=== PATIENT | female | born 1985 | race American Indian/Alaskan Native ===

== ENCOUNTER 2017-09-13 11:48 | Emergency (ER) | payer SELFPAY ==
--- NOTE | 2017-09-13 12:41 | Emergency Department Report ---
Blank Doc - Documentation Documentation: 32-year-old female with a past medical history irregular menses since onset of her dementia cycle presents to the hospital complaining of vaginal bleeding 3 weeks. Patient's last menstral cycle was December 2017 but she has been bleeding continuously since 08/27/2017. Initially started out with spotting now patient has used a 48 pack overnight pads in a one-week period. She complains of intermittent crampy abdominal pain that worsens with heavy bleeding. She c/o of feeling lightheaded, tired, and dizzy. Denies SOB. She has never had an ultrasound or been . Denies urinary symptoms labs ordered including preg US transvag/pelvic midlevel to evaluate
[2017-09-13 13:44] LABS: BUN/Creatinine Ratio 16; Blood Urea Nitrogen 11 mg/dL (7-17); Calcium 9.1 mg/dL (8.4-10.2); Hemolysis Index 2
[2017-09-13 13:48] LABS: Basophils % (Auto) 0.5 % (0.0-1.8); Eosinophils # (Auto) 0.2 K/mm3 (0.0-0.4); Eosinophils % (Auto) 2.6 % (0.0-4.3); Hematocrit 32.8 % (30.3-42.9); Hemoglobin 10.4 gm/dl (10.1-14.3); Lymphocytes # (Auto) 3.1 K/mm3 (1.2-5.4); Lymphocytes % (Auto) 31.9 % (13.4-35.0); Mean Corpuscular HGB Conc 32 % (30-34); Mean Corpuscular Volume 78 fl (79-97); Monocytes # (Auto) 0.5 K/mm3 (0.0-0.8); Monocytes % (Auto) 4.7 % (0.0-7.3); Platelet Count 357 K/mm3 (140-440); Red Blood Count 4.21 M/mm3 (3.65-5.03); Red Cell Distribution Width 17.5 % (13.2-15.2)
[2017-09-13 13:54] LABS: Free T4 (Free Thyroxine) 0.98 ng/dL (0.76-1.46)
[2017-09-13 13:56] LABS: Mean Corpuscular Hemoglobin 25 pg (28-32)
--- NOTE | 2017-09-13 15:13 | Ultrasound Report ---
Pelvic and transvaginal sonography: History: Heavy irregular menses. Findings: Uterus measures 9.3 x 4.6 x 4.8 cm. Endometrial thickness 13.3 mm. The endometrial margin appears irregular and the endometrium appears heterogeneous. No distinct mass is seen. Right ovary 2.8 x 1.7 x 2.3 cm. No mass. Left ovary 3.8 x 2.8 x 2.7 cm but no masses. Impression: Findings as detailed above.
--- NOTE | 2017-09-13 15:52 | Emergency Department Report ---
ED Female HPI - General Chief complaint: Vaginal Bleeding Stated complaint: PROLONGED/IRREGULAR MENSTRAL Time Seen by Provider: 09/13/17 12:33 Source: patient Mode of arrival: Ambulatory Limitations: No Limitations - History of Present Illness Initial comments: This is a 32-year-old female nontoxic, well nourished in appearance, no acute signs of distress presents to the ED with c/o of acute on chronic abnormal menstrual cycle 2 weeks. Patient stated that her last menstrual cycle was on December 2017 and has been bleeding consistently since 08/27/2017. Patient denies any urinary symptoms. She denies any fever, chills, nausea, vomiting, headache, stiff neck, numbness or tingling. Patient states that she gets intermittently abdominal cramping that is worsened during heavy menstrual cycle. Patient denies any chest pain or shortness of breath. Patient denies having any ultrasound follow-up. Patient denies any allergies or PMH. MD Complaint: vaginal bleeding -: week(s) (2) Radiation: non-radiating Severity: mild Severity scale (0 -10): 3 Quality: cramping Consistency: intermittent Improves with: none Worsens with: none Are you Now?: No Associated Symptoms: vaginal bleeding. denies: vaginal discharge, abdominal pain, nausea/vomiting, fever/chills, headaches, loss of appetite, dysuria, hematuria, rash, seizure, shortness of breath, syncope, weakness - Related Data Sexually active: No Previous Rx's Medication Instructions Recorded Last Taken Type Ibuprofen [Motrin] 600 mg PO Q8H PRN #30 tablet 09/13/17 Unknown Rx Allergies Allergy/AdvReac Type Severity Reaction Status Date / Time aloe vera Allergy Hives Verified 09/20/14 13:49 [place] Allergy Swelling Uncoded 09/20/14 13:49 ED Review of Systems ROS: Stated complaint: PROLONGED/IRREGULAR MENSTRAL Other details as noted in HPI Constitutional: denies: chills, fever Eyes: denies: eye pain, eye discharge, vision change ENT: denies: ear pain, throat pain Respiratory: denies: cough, shortness of breath, wheezing Cardiovascular: denies: chest pain, palpitations Endocrine: no symptoms reported Gastrointestinal: denies: abdominal pain, nausea, diarrhea Genitourinary: abnormal menses. denies: urgency, dysuria, discharge Musculoskeletal: denies: back pain, joint swelling, arthralgia Skin: denies: rash, lesions Neurological: denies: headache, weakness, paresthesias Psychiatric: denies: anxiety, depression Hematological/Lymphatic: denies: easy bleeding, easy bruising ED Past Medical Hx - Past Medical History Previous Medical History?: No - Surgical History Additional Surgical History: Tonsilectomy - Social History Smoking Status: Never Smoker Substance Use Type: None - Medications Home Medications: Home Medications Medication Instructions Recorded Confirmed Last Taken Type Ibuprofen [Motrin] 600 mg PO Q8H PRN #30 tablet 09/13/17 Unknown Rx ED Physical Exam - General Limitations: No Limitations General appearance: alert, in no apparent distress - Head Head exam: Present: atraumatic, normocephalic - Eye Eye exam: Present: normal appearance Pupils: Present: normal accommodation - ENT ENT exam: Present: normal exam, mucous membranes moist - Neck Neck exam: Present: normal inspection, full ROM. Absent: tenderness, meningismus, lymphadenopathy - Respiratory Respiratory exam: Present: normal lung sounds bilaterally. Absent: respiratory distress, wheezes, rales, rhonchi, stridor, chest wall tenderness, accessory muscle use, decreased breath sounds, prolonged expiratory - Cardiovascular Cardiovascular Exam: Present: regular rate, normal rhythm, normal heart sounds. Absent: bradycardia, tachycardia, irregular rhythm, systolic murmur, diastolic murmur, rubs, gallop - GI/Abdominal GI/Abdominal exam: Present: soft, normal bowel sounds. Absent: distended, tenderness, guarding, rebound, rigid, diminished bowel sounds - Rectal Rectal exam: Present: deferred - Extremities Exam Extremities exam: Present: normal inspection, full ROM, normal capillary refill. Absent: tenderness - Back Exam Back exam: Present: normal inspection, full ROM. Absent: tenderness, CVA tenderness (R), CVA tenderness (L), muscle spasm, paraspinal tenderness, vertebral tenderness, rash noted - Neurological Exam Neurological exam: Present: alert, oriented X3, normal gait - Psychiatric Psychiatric exam: Present: normal affect, normal mood - Skin Skin exam: Present: warm, dry, intact, normal color. Absent: rash ED Course Vital Signs 09/13/17 11:56 Temperature 98.9 F Pulse Rate 66 Respiratory 16 Rate Blood Pressure 140/88 O2 Sat by Pulse 98 Oximetry - Reevaluation(s) Reevaluation #1: 09/13/17 15:54 Patient is speaking in full sentences with no signs of distress noted. - Consultations Consultation #1: 09/13/17 15:54 Patient has been consulted with Dr. Braswell about patient history, physical exam, and labs/US report and examined and screened patient and agrees to ED plan of care and discharge plan of care. ED Medical Decision Making - Lab Data Result diagrams: 09/13/17 13:10 09/13/17 13:10 - Medical Decision Making This is a 32-year-old female who presents with a abnormal menaces. Patient is stable exam by me and Dr. Sauceda. Labs obtained and unremarkable. Ultrasound dictated by radiologist within normal limits. Patient notified of the ultrasound report with no questions by the patient. There is no abdominal pain or tenderness. No pelvic pain or tenderness. Patient was instructed to Follow- up with a primary care doctor in 3-5 days or if symptoms worsen and continue return to emergency room as soon as possible. At time of discharge, the patient does not seem toxic or ill in appearance. No acute signs of distress noted. Patient agrees to discharge treatment plan of care. No further questions noted by the patient. Critical care attestation.: If time is entered above; I have spent that time in minutes in the direct care of this critically ill patient, excluding procedure time. ED Disposition Clinical Impression: Abnormal menses Disposition: DC-01 TO HOME OR SELFCARE Is pt being admited?: No Does the pt Need Aspirin: No Condition: Stable Additional Instructions: Follow-up with a primary care/[employer] doctor in 3-5 days or if symptoms worsen and continue return to emergency room as soon as possible. Prescriptions: Ibuprofen [Motrin] 600 mg PO Q8H PRN #30 tablet PRN Reason: Pain Referrals: PRIMARY CAREMD [Primary Care Provider] - 3-5 Days CATRACHO FISCHER MD [Staff Physician] - 3-5 Days SASHA GROVES MD [Staff Physician] - 3-5 Days [facility] [Provider Group] - 3-5 Days Forms: Work/School Release Form(ED)
[2017-09-13 16:14] VITALS: BP 132/88
== END 2017-09-13 16:17 | disposition home or self-care (01) ==
LOC: ED 11:48
DX: N94.89 Other specified conditions associated with female genital organs and menstrual cycle (principal); Z90.89 Acquired absence of other organs; Z91.018 Allergy to other foods
CPT/HCPCS: 36415; 76830; 76856; 80048; 84439; 84443; 84703; 85025